=== PATIENT | male | born 1960 ===

== ENCOUNTER 2020-10-19 06:05 | Outpatient (RCR) | payer BC ==
[~2020-10-19] VITALS: Ht 180.3 cm; Wt 72.6 kg
[2020-10-19] VITALS (8 sets, daily range): BP systolic 156–174; BP diastolic 82–97
[2020-10-19] MEDS ORDERED: Succinylcholine 20mg/ml 10ml vial ONE (06:06)
[2020-10-19] MEDS ORDERED: NS 500ML ONE (06:06)
[2020-10-19] MEDS ORDERED: Methohexita Syr 100mg/10ml IVP ONE (06:06)
== END 2020-11-13 | disposition home or self-care (01) ==
LOC: ECT 06:05
DX: F25.0 Schizoaffective disorder, bipolar type (principal); E11.9 Type 2 diabetes mellitus without complications; I10 Essential (primary) hypertension; E78.5 Hyperlipidemia, unspecified; N31.9 Neuromuscular dysfunction of bladder, unspecified; K59.00 Constipation, unspecified
CPT/HCPCS: 90870; J0330; J7040

== ENCOUNTER 2020-11-25 05:38 | Outpatient (RCR) | payer BC ==
[2020-11-25] VITALS (7 sets, daily range): BP systolic 155–167; BP diastolic 97–105
[~2020-11-25] VITALS: Ht 30.5 cm; Wt 0.5 kg
[2020-11-25] MEDS ORDERED: Succinylcholine 20mg/ml 10ml vial ONE (05:39)
[2020-11-25] MEDS ORDERED: Methohexita Syr 100mg/10ml IVP ONE (05:39)
[2020-11-25] MEDS ORDERED: NS 500ML ONE (05:39)
== END 2020-12-11 | disposition home or self-care (01) ==
LOC: ECT 05:38
DX: F25.0 Schizoaffective disorder, bipolar type (principal); E11.9 Type 2 diabetes mellitus without complications; I10 Essential (primary) hypertension; E78.5 Hyperlipidemia, unspecified; N31.9 Neuromuscular dysfunction of bladder, unspecified; K59.00 Constipation, unspecified
CPT/HCPCS: 90870; J0330; J7040